=== PATIENT | male | born 2000 | race Caucasian/White ===

== ENCOUNTER 2022-06-07 20:40 | Emergency (ER) | payer SELFPAY ==
[~2022-06-07] VITALS: Ht 180.3 cm; Wt 70.3 kg
[2022-06-07 20:40] VITALS: BP 118/60
--- NOTE | 2022-06-07 20:40 | NUR ---
ROMAINE LEMUS. PT EVALUATED ON [facility] BY DR. MARY.
--- NOTE | 2022-06-07 20:41 | NUR ---
IV removed, catheter intact and site benign. Applied folded 4x4 gauze and tape to stop bleeding.
--- NOTE | 2022-06-07 20:45 | NUR ---
Patient does not wish to proceed with medical care recommended by [facility]. Patient given information related to possible complications, up to and including , which could occur as a result of leaving hospital at this time. Patient verbalizes understanding of risks involved leaving against medical advice. Patient has signed AMA form.
== END 2022-06-07 20:45 | disposition left against medical advice (07) ==
LOC: MED 20:40
DX: R55 Syncope and collapse (principal)
CPT/HCPCS: 99283